=== PATIENT | female | born 1985 | race Caucasian/White ===

== ENCOUNTER → 2023-11-20 | Outpatient (CLI) | payer BC ==
--- NOTE | 2023-11-22 15:29 | MM ---
Reason for Exam: Screening (asymptomatic). Baseline mammogram. Patient History: Menarche at age 8. Patient has no children. Premenopausal. Last menstrual period: 11/08/2023 Risk Values: Elisa 5 year model risk: 0.7%. NCI Lifetime model risk: 12.1%. Prior Study Comparison: Patient's first Mammogram. Tissue Density: The breast tissue is heterogeneously dense. This may lower the sensitivity of mammography. Findings: Analyzed By CAD. Pattern appears symmetrical. There is some focal increased lobular density within the anterior right breast. Additional evaluation with compression views is recommended. This is likely some summation density. There is a small focal density within the posterior left mediolateral oblique view. This may be summation density. Follow-up compression view is recommended. Overall Assessment: Incomplete: need additional imaging evaluation, BI-RAD 0 Management: Diagnostic Mammogram of both breasts. A negative mammogram report should not preclude additional follow up of suspicious palpable abnormalities. Patient should continue monthly self breast exam. A clinical breast exam by your physician is recommended on an annual basis and results should be correlated with mammographic findings. Electronically signed and approved by: Corbin Lay D.O. Radiologis [facility] HEALTH PARTNERSGuadalupe
== END | disposition home or self-care (01) ==
LOC: RADMAMWWP 08:36
PROVIDERS: ATTEND Family Medicine
DX: Z12.31 Encounter for screening mammogram for malignant neoplasm of breast (principal)
CPT/HCPCS: 77067

== ENCOUNTER → 2023-11-27 | Outpatient (CLI) | payer BC ==
--- NOTE | 2023-11-27 08:37 | MM ---
Reason for Exam: Additional evaluation requested from abnormal screening. Last screening mammogram was performed less than 1 month ago. Patient History: Menarche at age 8. Patient has no children. Premenopausal. Last menstrual period: 11/07/2023 Risk Values: Elisa 5 year model risk: 0.7%. NCI Lifetime model risk: 12.1%. Prior Study Comparison: 11/20/2023 Bilateral MG screening mammo w CAD, [facility]. Tissue Density: The breast tissue is heterogeneously dense. This may lower the sensitivity of mammography. Findings: Analyzed By CAD. Area of early located asymmetric density on the left MLO view does not persist on additional views. Findings compatible superimposition shadow. The questioned area of central outer asymmetric density in the right breast also disperses, particularly on the rolled view compatible with superimposition shadow. Overall Assessment: Benign, BI-RAD 2 Management: Screening Mammogram of both breasts in 1 year. Results were given to the patient verbally at the time of exam. Patient should continue monthly self-breast exams. A clinical breast exam by your physician is recommended on an annual basis. This exam should not preclude additional follow-up of suspicious palpable abnormalities. Note on Elisa scores and lifetime risk: 1. A Elisa score greater than 3% is considered moderate risk. If this is the case, consider specialist referral to assess eligibility for a risk reducing agent. 2. If overall lifetime risk for the development of breast cancer is 20% or higher, the patient may qualify for future screening with alternating mammogram and breast MRI. Electronically signed and approved by: Lena Pace M.D. Radiologist
== END | disposition home or self-care (01) ==
LOC: RADMAMWWP 07:59
PROVIDERS: ATTEND Family Medicine
DX: R92.333 Mammographic heterogeneous density, bilateral breasts (principal)
CPT/HCPCS: 77062; 77066

== ENCOUNTER 2024-03-08 12:32 | Emergency (ER) | payer BC ==
[2024-03-08 13:11] VITALS: BP 115/81; PULSE 92; RESP 18; TEMP 98
--- NOTE | 2024-03-08 13:18 | ED ---
General Adult HPI - General Chief complaint: Animal Bite Stated complaint: Animal Bite (Dog) Time Seen by Provider: 03/08/24 12:51 Source: patient, RN notes reviewed Mode of arrival: ambulatory Limitations: no limitations - History of Present Illness Initial comments: 38-year-old female presents to the emergency department for evaluation of right hand injury due to dog bite. Patient states that her dog was outside when another dog came up and they started to fight. Patient states that she tried to break up the fight and the unknown dog bit her hand. They are unsure of the rabies status of this dog. Patient has puncture wounds to both the dorsal and volar side of the hand laterally. She admits to pain, denies numbness, tingling. She is unsure when her last tetanus vaccination was. - Related Data Previous Rx's Medication Instructions Recorded Amoxic-Pot Clav 875-125Mg 1 tab PO Q12HR #20 tab 03/08/24 [Augmentin 875-125] Allergies Allergy/AdvReac Type Severity Reaction Status Date / Time No Known Allergies Allergy Verified 03/08/24 12:46 Review of Systems ROS Statement: Those systems with pertinent positive or pertinent negative responses have been documented in the HPI. ROS Other: All systems not noted in ROS Statement are negative. Past Medical History Past Medical History: No Reported History History of Any Multi-Drug Resistant Organisms: None Reported Past Surgical History: No Surgical Hx Reported Past Psychological History: No Psychological Hx Reported Smoking Status: Never smoker Past Alcohol Use History: None Reported Past Drug Use History: None Reported General Exam Limitations: no limitations General appearance: alert, in no apparent distress Head exam: Present: atraumatic, normocephalic, normal inspection Eye exam: Present: normal appearance, PERRL, EOMI. Absent: scleral icterus, conjunctival injection, periorbital swelling ENT exam: Present: normal exam, mucous membranes moist Extremities exam: Present: normal inspection, full ROM, tenderness, normal capillary refill, other (Puncture wounds to right hand, 1 cm laceration between the second and third metacarpals). Absent: pedal edema, joint swelling, calf tenderness Neurological exam: Present: alert, oriented X3 Psychiatric exam: Present: normal affect, normal mood Skin exam: Present: warm, dry, normal color. Absent: intact Course Vital Signs 03/08/24 12:43 Temperature 98 F Pulse Rate 92 Respiratory 18 Rate Blood Pressure 115/81 O2 Sat by Pulse 98 Oximetry Procedures - Laceration Laceration #1 Consent Obtained: verbal consent Indication: laceration Site: hand Size (cm): 1 Description: linear Depth: simple, single layer Anesthetic Used: lidocaine 1% Anesthesia Technique: local infiltration Pre-repair: wound explored, irrigated extensively Size of Sutures: 5-0 Number of Sutures: 2 Patient Tolerated Procedure: well, no complications Medical Decision Making - Medical Decision Making Was pt. sent in by a medical professional or institution (, PA, CHEMICAL ENGINEERING PROFESSOR, urgent care, hospital, or group home...) When possible be specific @ -No Did you speak to anyone other than the patient for history (EMS, parent, family, police, friend...)? What history was obtained from this source @ -No Did you review nursing and triage notes (agree or disagree)? Why? @ -I reviewed and agree with nursing and triage notes Were old charts reviewed (outside hosp., previous admission, EMS record, old EKG, old radiological studies, urgent care reports/EKG's, group home records)? Report findings @ -No old charts were reviewed Differential Diagnosis (chest pain, altered mental status, abdominal pain women, abdominal pain men, vaginal bleeding, weakness, fever, dyspnea, syncope, headache, dizziness, GI bleed, back pain, seizure, CVA, palpatations, mental health, musculoskeletal)? @ -Differential Musculoskeletal Muscular strain, contusion, ligament sprain, fracture, arthritis, septic a rthritis, bursitis, cellulitis, muscle spasm, nerve compression, DVT, arterial occlusion, herpes zoster, electrolyte abnormality, tumor.... This is not meant to be in all inclusive list EKG interpreted by me (3pts min.). @ -None X-rays interpreted by me (1pt min.). @ -N x-ray of the right hand obtained which shows no acute osseous abnormality, no evidence of foreign body CT interpreted by me (1pt min.). @ -None done U/S interpreted by me (1pt. min.). @ -None done What testing was considered but not performed or refused? (CT, X-rays, U/S, labs)? Why? @ -None What meds were considered but not given or refused? Why? @ -None Did you discuss the management of the patient with other professionals (professionals i.e. , PA, CHEMICAL ENGINEERING PROFESSOR, lab, RT, psych nurse, social science analyst, hospital superintendent, teacher, senior loan officer, field nurse case manager)? Give summary @ -No Was smoking cessation discussed for >3mins.? @ -No Was critical care preformed (if so, how long)? @ -No Were there social determinants of health that impacted care today? How? (Homelessness, low income, unemployed, alcoholism, drug addiction, transportation, low edu. Level, literacy, decrease access to med. care, detention, rehab)? @ -No Was there de-escalation of care discussed even if they declined (Discuss DNR or withdrawal of care, Hospice)? DNR status @ -No What co-morbidities impacted this encounter? (DM, HTN, Smoking, COPD, CAD, Cancer, CVA, ARF, Chemo, Hep., AIDS, mental health diagnosis, sleep apnea, morbid obesity)? @ -None Was patient admitted / discharged? Hospital course, mention meds given and route, prescriptions, significant lab abnormalities, going to OR and other pertinent info. @ -Discharge. Patient presented to the emergency department for evaluation of dog bite to right hand from unknown dog. Patient underwent x-rays which show no evidence of radiopaque foreign body, no acute fracture. Wounds were cleaned extensively. She does have a 1-1/2 cm laceration to the dorsal aspect of her hand with exposed adipose tissue. This was loosely approximated with sutures. Prior to this, patient received rabies Ig in wound and rabies vaccine, along with tetanus vaccination. Patient was given a prescription for the rest of the rabies series. Dog bite paperwork was filled out to be faxed to animal control. Prescription was sent for Augmentin patient advised to clam picker this medication and take to completion. Patient understanding agreeable with plan. Patient stable at time of discharge. Case discussed with Dr. Crooks. Undiagnosed new problem with uncertain prognosis? @ -No Drug Therapy requiring intensive monitoring for toxicity (Heparin, Nitro, Insulin, Cardizem)? @ -No Were any procedures done? @ -Laceration repair Diagnosis/symptom? @ -Default Acute, or Chronic, or Acute on Chronic? @ -Default Uncomplicated (without systemic symptoms) or Complicated (systemic symptoms)? @ -Default Side effects of treatment? @ -No Exacerbation, Progression, or Severe Exacerbation? @ -No Poses a threat to life or bodily function? How? (Chest pain, USA, ID, pneumonia, PE, COPD, DKA, ARF, appy, cholecystitis, CVA, Diverticulitis, Homicidal, Suicidal, threat to staff... and all critical care pts) @ -No Disposition Clinical Impression: Dog bite Disposition: HOME SELF-CARE Condition: Stable Instructions (If sedation given, give patient instructions): Animal Bite (ED) Additional Instructions: Please clam picker antibiotics and take to completion. Be on the lookout for signs of infection. Return to the emergency department for new or worsening symptoms. Prescriptions: Amoxic-Pot Clav 875-125Mg [Augmentin 875-125] 1 tab PO Q12HR #20 tab Is patient prescribed a controlled substance at d/c from ED?: No Referrals: Douglas Alvarado MD [Primary Care Provider] - 1-2 days
--- NOTE | 2024-03-08 13:57 | XR ---
EXAMINATION TYPE: XR hand complete RT DATE OF EXAM: 03/08/2024 1:47 PM CLINICAL INDICATION:Female, 38 years old with history of dog bite; [facility] COMPARISON: None TECHNIQUE: XR hand complete RT Frontal, lateral and oblique views were obtained. FINDINGS: Normal alignment of the visualized joints. No acute osseous pathology is identified. No e vidence of soft tissue swelling. No radiopaque foreign body. Subjacent lucency projecting over the se cond digit volar aspect of the middle phalanx. IMPRESSION: 1. No acute osseous pathology. 2. No radiopaque foreign body.
[2024-03-08] MEDS: IBUPROFEN 800 MG TAB PO STA (14:07)
[2024-03-08] MEDS: ACETAMINOPHEN TAB 325 MG TAB PO STA (14:07)
[2024-03-08] MEDS: LIDOCAINE 1% INJ 10MG/ML (20 ML MDV) SQ ONE (14:08)
[2024-03-08] MEDS: RABIES VACCINE (PCEC) 2.5 UNIT KIT IM ONE (14:10)
[2024-03-08] MEDS: RABIES IMM GLOB 300 UNIT/2 ML VIAL IM ONE (14:16)
[2024-03-08] MEDS: traMADol 50 MG STARTER PACK 3 TAB BTL PO STA (15:31)
[2024-03-08] MEDS: AMOXIC-POT CLAV 875-125MG 1 EACH TAB PO STA (15:31)
== END 2024-03-08 15:44 | disposition home or self-care (01) ==
LOC: EC 12:32
DX: S61.451A Open bite of right hand, initial encounter (principal); Z20.3 Contact with and (suspected) exposure to rabies; W54.0XXA Bitten by dog, initial encounter
CPT/HCPCS: 12001 ×2; 96372 ×2; 99283 ×2; 90471; 73130; 90675; 90377; J2001